=== PATIENT | female | born 1965 | race Caucasian/White ===

== ENCOUNTER 2023-03-27 07:56 | Outpatient (CLI) | payer OTHER, SELFPAY ==
--- OUTSIDE RECORDS SUMMARY | 2023-03-27 07:59 | XMS_ITS | Continuity of Care Document ---
Author Name Unknown Organization [facility] Address [address] [place] [address] [place] [address] Phone Care Team Providers Care Equine Pharmacology Technician Name Role Phone Will MD MOURA, Zachary Rosas Unavailabl e Advance Directives Directive Yes / No Effective Date File Name No Information Encounters Encounter Description Practice Location Reason(s) For Visit Diagnoses Date Provider Providers Copied on Encounter [facility], [address] [place] [address] [place], [place], [id number], [place] tel:[phone] [facility] No Information [facility]. [address] [facility] [place] [id number], [place]. tel:[phone] Family History Family Member Type Diagnosis Age At Onset No Information Payers Payer name Insurance type Covered green party ID Authoriza tion(s) No Information Social History Type Description Quantity Date Captured Comments Sex Female Smoking Status No Information Chief Complaint And Reason For Visit No Information Reason For Referral Reason For Referral No Information Plan Of Treatment Date Type Action Status No Information History Of Present Illness Encounter Date Complaint History Of Prese nt Illness No Information Functional Status Date Functional Assessmen t No Information Instructions Date Instruction Additional Infor mation No Information Assessments Type Assessment Date No Information Patient Care Teams Name Effective Dates (start - stop) Status Members No Information
--- OUTSIDE RECORDS SUMMARY | 2023-03-27 07:59 | XMS_ITS | Continuity of Care Document ---
Author Name Unknown Organization [facility] Address [address] [place] [address] Phone Care Team Providers Care Balcony Worker Name Role Phone Mary Montoya MD Unavailable Unavailable Allergies, Adverse Reactions, Alerts Substance Reaction Status Criticality Sulfa (Sulfonamide Antibiotics) Fever, Rash Active No Information PENICILLIN Fever, Rash Active No Information Medications Medication Instructions Dosage Effective Dates (start - stop) Status Comments Cymbalta 30 mg capsule,delayed release take 1 Capsule by oral route every day 30 MG - Active tramadol 50 mg tablet take 1 by Oral rou te once prn as needed 1 - Active hydroxyzine HCl 25 mg tablet take 1 tablet by oral route every day 25 MG - Active levothyroxine 112 mcg tablet take 1 tablet by oral route every day 112 MCG - Active Restasis 0.05 % eye drops in a dropperette instill 1 drop by ophthalmic route every 12 hours into both eyes 1 drop - Active fluticasone 50 mcg/actuation nasal spray,suspension inhale 1 spray by intranasal route every day in each nostril 50 MCG - Active Procedures Procedure Date Office/Outpatient Visit, Est Routine Venipuncture Assay Of Serum Albumin Assay Of Creatinine Transferase (Ast) (Sgot) Alanine Amino (Alt) (Sgpt) Dna Antibody, Single Strand Dna Antibody, [place] Nuclear Antigen Antibodies Complete Cbc WAuto Diff Wbc Office/Outpatient Visit, Est Routine Venipuncture Assay Of Serum Albumin Assay Of Creatinine Transferase (Ast) (Sgot) Alanine Amino (Alt) (Sgpt) Dna Antibody, Single Strand Dna Antibody, [place] Nuclear Antigen Antibodies Complete Cbc WAuto Diff Wbc Office/Outpatient Visit, Est Routine Venipuncture Rbc Sed Rate, Nonautomated Assay Of Serum Albumin Assay Of Creatinine Transferase (Ast) (Sgot) Alanine Amino (Alt) (Sgpt) CReactive Protein Dna Antibody, Single Strand Dna Antibody, [place] Nuclear Antigen Antibodies Antinuclear Antibodies Complete Cbc WAuto Diff Wbc Office/Outpatient Visit, Est Routine Venipuncture Specimen Handling Rbc Sed Rate, Nonautomated CReactive Protein Office/Outpatient Visit, Est Routine Venipuncture Specimen Handling Rbc Sed Rate, Nonautomated CReactive Protein Office/Outpatient Visit, Est Office/Outpatient Visit, New Routine Venipuncture Specimen Handling Antinuclear Antibodies CCP Antibody Rheumatoid Factor, IGM Rheumatoid Factor, IGG, IGA Dna Antibody, Single Strand Dna Antibody, [place] Nuclear Antigen Antibodies Advance Directives Directive Yes / No Effective Date File Name No Information Encounters Encounter Description Practice Location Reason(s) For Visit Diagnoses Date Provider Providers Copied on Encounter [facility] , [address], [place], [address], [place] tel:[phone] [facility] , No Information 3 Jan Hernandez. [facility] [address], [place], [address], [place]. tel:[phone] Office/Outpa tient Visit, Est [facility] , [address], [place], [address], [place] tel:[phone] [facility] , Connective tissue disease (chief complaint) Pain in right hipSicca syndromeSyst emic disorder of connective tissue in other diseases classified elsewhere 3 Jan Hernandez. [facility] [address], [place], [address], [place]. tel:[phone] Referring Provider: Mary Rain, [facility] [address], [place], [address]. tel:[phone] [facility] , [address], [place], [address], [place] tel:[phone] [facility] , No Information 3 Jan Hernandez. [facility] [address], [place], [address], [place]. tel:[phone] Referring Provider: Mary Rain, [facility] [address], [place], [address]. tel:[phone] Office/Outpa tient Visit, Est [facility] , [address], [place], [address], [place] tel:[phone] [facility] , Connective tissue disease (chief complaint) Pain in right hipSicca syndromeSyst emic disorder of connective tissue in other diseases classified elsewhere 2 Jan Hernandez. [facility] [address], [place], [address], [place]. tel:[phone] Referring Provider: Mary Rain, [facility] [address], [place], [address]. tel:[phone] Office/Outpa tient Visit, Est [facility] , [address], [place], [address], [place] tel:[phone] [facility] , Connective tissue disease (chief complaint) Pain in right hipSicca syndromeSyst emic disorder of connective tissue in other diseases classified elsewhereCou nseling, unspecifiedO ther specified abnormal immunologica l findings in serum 1 Jan Hernandez. [facility] [address], [place], [address], [place]. tel:[phone] Referring Provider: Mary Rain, [facility] [address], [place], [address]. tel:[phone] Office/Outpa tient Visit, Est [facility] , [address], [place], [address], [place] tel:[phone] [facility] , Sicca syndromeSyst emic disorder of connective tissue in other diseases classified elsewherePos itive ANAPain in right hip 0 Vanda Sams. [facility] [address], [place], [address], [place]. tel:[phone] Referring Provider: Flaquita Lieberman, [facility] [address], [place], [address]. tel:[phone] Office/Outpa tient Visit, Est [facility] , [address], [place], [address], [place] tel:[phone] [facility] , Sicca syndromeSyst emic disorder of connective tissue in other diseases classified elsewherePos itive ANAPain in left hip 8 Vandaeduardo Sams. [facility] [address], [place], [address], [place]. tel:[phone] Referring Provider: Flaquita Lieberman, [facility] [address], [place], [address]. tel:[phone] Office/Outpa tient Visit, Est [facility] , [address], [place], [address], [place] tel:[phone] [facility] , Systemic disorder of connective tissue in other diseases classified elsewherePos itive ANASicca syndromeArth ralgia of bilateral temporomandi bular joint 7 Vandaeduardo Sams. [facility] [address], [place], [address], [place]. tel:[phone] Referring Provider: Flaquita Lieberman, [facility] [address], [place], [address]. tel:[phone] Office/Outpa tient Visit, New [facility] , [address], [place], [address], [place] tel:[phone] [facility] , Positive ANASicca syndromeArth ralgia of bilateral temporomandi bular jointPrimary osteoarthrit isPlantar fasciitis Jun- 7 Vandaeduardo Sams. [facility] [address], [place], [address], [place]. tel:[phone] Referring Provider: Flaquita Lieberman, [facility] [address] [facility] [address], [place], [address]. tel:[phone] Family History Family Member Type Diagnosis Age At Onset Mother Problem (finding) rheumatoid arthritis Father Problem (finding) Heart disease Mother Problem (finding) gout Father Problem (finding) malignant neoplasm of l mario Mother Problem (finding) osteoarthritis Payers Payer name Insurance type Covered libertarian ID Katy raygoza(sDre [employer] [id number] Social History Type Description Quantity Date Captured Comments Sex Female Smoking Status No Information Chief Complaint And Reason For Visit No Information Reason For Referral Reason For Referral No Information Plan Of Treatment Date Type Action Status No Information History Of Present Illness Encounter Date Complaint History Of Prese nt Illness Connective tissue disease Connective tissue disease Connective tissue disease Functional Status Date Functional Assessmen t No Information Instructions Date Instruction Additional Infor mation continue Restasisrec ommend regular eye doctor & dentist visits Related to Sicca syndrome labs todayrtc: 1 year Related to Systemic disorder of connective tissue in other diseases classified elsewhere restart PT exercises increase walkingstrengtheningfollow up with ortho prn Related to Pain in right hip continue Restasisrec ommend regular eye doctor & dentist visits Related to Sicca syndrome labs todayrtc: 1 year Related to Systemic disorder of connective tissue in other diseases classified elsewhere continue PTfollow up with ortho prn Related to Pain in right hip rtc: 1 year Related to Syste marc disorder of connective tissue in other diseases classified elsewhere continue Restasis Related to Sic ca syndrome continue to see ortho Related to Pain in right hip - Continue Restasis and epinastine eyedrops- No current indication for systemic therapy for sicca syndrome, will reassess at each visit Related to Sicca syndrome - GABRIELLE screen with re flex to fall panel, CCP, rheumatoid factor and thyroid antibodies today- No current indication for immunosuppression Related to Positive GABRIELLE Assessments Type Assessment Date No Information Patient Care Teams Name Effective Dates (start - stop) Status Members No Information
--- NOTE | 2023-03-27 08:15 | CRLHL7_ITS ---
For Patients: As a result of the Century Cures Act, medical imaging exams and procedure reports are released immediately into your electronic medical record. You may view this report before your referring provider. If you have questions, please contact your health care provider. Indication: Hyperprolactinemia. Technique: High-resolution sagittal and coronal, pre and postcontrast T1 weighted sequences through the pituitary gland, axial diffusion, T2 FLAIR sequences are provided. Compared to prior study from March 10, 2020. 15 cc dotarem was administered intravenously. Findings: Ventricles, sulci and gyri are normal size shape and contour for age. The midline structures are centrally located with no evidence of shift. There are no suspicious intra or extra-axial fluid collections. No region of restricted diffusion. There is a better visualized 2 millimeter poorly enhancing lesion within the inferior aspect of the right pituitary gland compatible with a microadenoma. By report, this is unchanged since 2017. Stable cystic lesion in the region of the pineal gland likely representing an incidental pineal cyst. The optic chiasm and infundibulum are midline and within normal limits. Expected flow voids within the cavernous carotids and basilar artery. Impression: 1. Better visualized 2 millimeter poorly enhancing lesion within the inferior aspect of the right pituitary gland appearing most compatible with a pituitary microadenoma. 2. Stable incidental pineal cyst. Dictated by Papo Saeed MD @ 03/28/2023 7:15:43 PM (Electronically Signed)
== END 2023-03-27 07:57 | disposition home or self-care (01) ==
LOC: MRI 07:57
PROVIDERS: PCP Internal Medicine Endocrinology, Diabetes & Metabolism; Visit Provider Internal Medicine Endocrinology, Diabetes & Metabolism
DX: E22.1 Hyperprolactinemia (principal); E23.6 Other disorders of pituitary gland
CPT/HCPCS: 70553; A9575

== ENCOUNTER 2024-12-08 15:06 | Outpatient (CLI) | payer OTHER, SELFPAY ==
--- NOTE | 2024-12-08 15:30 | CRLHL7_ITS ---
For Patients: As a result of the Century Cures Act, medical imaging exams and procedure reports are released immediately into your electronic medical record. You may view this report before your referring provider. If you have questions, please contact your health care provider. Indication: Hyperprolactinemia Technique: High-resolution sagittal and coronal, pre and postcontrast T1 weighted sequences through the pituitary gland, axial diffusion, T2 FLAIR sequences are provided. 10cc Dotarem gadolinium based IV contrast was administered. Comparison: 03/27/2023, 03/10/2020 Findings: Ventricles, sulci and gyri are normal size shape and contour for age. The midline structures are centrally located with no evidence of shift. There are no suspicious intra or extra-axial fluid collections. Stable small focus of FLAIR signal hyperintensity in the left frontal lobe subcortical white matter that is nonspecific no region of restricted diffusion or abnormal parenchymal enhancement. 1.2 centimeter pineal gland cyst. Specifically no evidence suspicious regions of abnormal contrast enhancement within the sella. The optic chiasm and infundibulum are midline and within normal limits. Expected flow voids within the cavernous carotids and basilar artery. No regions of restricted diffusion. Impression: 1. No evidence of acute intracranial abnormality. 2. The previously described 2 mm hypoenhancing lesion in the right pituitary gland is not clearly identified on the current study. 3. Stable pineal gland cyst. Dictated by Rishi Chowdary MD @ 12/09/2024 11:29:52 AM (Electronically Signed)
== END 2024-12-08 15:07 | disposition home or self-care (01) ==
LOC: MRI 15:08
PROVIDERS: PCP Internal Medicine Endocrinology, Diabetes & Metabolism; Visit Provider Internal Medicine Endocrinology, Diabetes & Metabolism
DX: E22.1 Hyperprolactinemia (principal); E23.7 Disorder of pituitary gland, unspecified
CPT/HCPCS: 70553; A9575